=== PATIENT | female | born 1985 | race Caucasian/White ===

== ENCOUNTER → 2016-09-01 | Outpatient (CLI) | payer OTHER ==
[~2016-09-01] VITALS: Ht 154.9 cm; Wt 59.0 kg
[~2016-09-01] MED LIST: BENT10CA PO; MESA50SU PR; NS 1,000 ML IV SCH; PREV15CA11 PO; PROPOFOL 200 MG/20 ML VIAL As Ordered ONE; REST0.05 OU
--- NOTE | 2016-09-01 10:07 | ROOR ---
Patient Name: Maisha Moseley Procedure Date: 09/01/2016 9:48 AM Date of : 1985 Age: 31 Room: OP Gender: Female Note Status: Finalized Procedure: Upper GI endoscopy Indications: Dysphagia, Globus sensation Providers: Lukas KILPATRICK MD Referring MD: TUAN KEARNEY MD Requesting Provider: Medicines: Monitored Anesthesia Care Complications: No immediate complications. Procedure: Pre-Anesthesia Assessment: - The heart rate, respiratory rate, oxygen saturations, blood pressure, adequacy of pulmonary ventilation, and response to care were monitored throughout the procedure. The Endoscope was introduced through the mouth, and advanced to the second part of duodenum. The upper GI endoscopy was accomplished without difficulty. The patient tolerated the procedure well. Findings: A single erosion without bleeding was found in the second part of the duodenum. Biopsies were taken with a cold forceps for histology. The exam of the duodenum was otherwise normal. The examined esophagus was normal. The entire examined stomach was normal. Biopsies were taken with a cold forceps for Helicobacter pylori testing. Impression: - Normal esophagus. - Normal stomach. Biopsied. - Single 5mm duodenal erosion without bleeding. Biopsied. - Dudenum otherwise normal. Recommendation: - Use Prilosec (omeprazole) 40 mg PO daily for 1 month. - No ibuprofen, naproxen, or other non-steroidal anti-inflammatory drugs for 4 weeks. - Telephone endoscopist for pathology results in 2 weeks. Lukas Kilpatrick MD Lukas KILPATRICK MD 09/01/2016 10:07:31 AM This report has been signed electronically. Number of Addenda: 0 Note Initiated On: 09/01/2016 9:48 AM Estimated Blood Loss: Estimated blood loss: none.
[2016-09-01 10:30] VITALS: BP 153/92
== END ==
LOC: M OPP 09:11
PROVIDERS: ATTEND Internal Medicine Gastroenterology
DX: R13.10 Dysphagia, unspecified (principal); F45.8 Other somatoform disorders; K26.9 Duodenal ulcer, unspecified as acute or chronic, without hemorrhage or perforation; E61.1 Iron deficiency; Z88.0 Allergy status to penicillin

== ENCOUNTER → 2016-11-18 | Outpatient (REF) | payer OTHER ==
[~2016-11-18] MED LIST changes: -NS 1,000 ML IV SCH; -PROPOFOL 200 MG/20 ML VIAL As Ordered ONE
== END ==
LOC: M SFHCLERA 10:37
PROVIDERS: ATTEND Nurse Practitioner Family
DX: J06.9 Acute upper respiratory infection, unspecified (principal)

== ENCOUNTER → 2017-02-13 | Outpatient (CLI) | payer OTHER ==
[~2017-02-13] MED LIST changes: -PREV15CA11 PO; +PREV15CA18 PO
[2017-02-13 17:20] LABS: BASO # 0.1 K/mm3 (0.0-0.2); BASO % 0.7 % (0.0-1.0); EOS # 0.4 K/mm3 (0.0-0.50); LARGE UNSTAINED CELL # 0.2 K/mm3 (0.0-0.4); LARGE UNSTAINED CELL % 1.2 % (0.0-4.0); LYMPH # 1.9 K/mm3 (1.5-4.5); LYMPH % 15.1 % (24.0-44.0); MEAN CORPUSCULAR HGB CONC 32.5 g/dl (32.0-36.5); MEAN CORPUSCULAR VOLUME 89.5 fl (80.0-96.0); MONO # 0.5 K/mm3 (0.0-0.8); MONO % 3.8 % (0.0-5.0); NEUTROPHILS # 9.5 K/mm3 (1.8-7.7); NEUTROPHILS % 76.2 % (36.0-66.0); PLATELET COUNT, AUTOMATED 224 k/mm3 (150-450); RED CELL DISTRIBUTION WIDTH 14.5 % (11.5-14.5); WHITE BLOOD COUNT 12.4 K/mm3 (4.0-10.0)
[2017-02-15 10:46] LABS: HBsAg Prenatal NEGATIVE (NEGATIVE)
== END ==
LOC: M LRY 12:19
PROVIDERS: ATTEND Advanced Practice Midwife
DX: Z34.81 Encounter for supervision of other normal pregnancy, first trimester (principal)